=== PATIENT | male | born 1980 | race Caucasian/White ===

== ENCOUNTER 2020-03-25 18:44 | Emergency (ER) | payer OTHER ==
[2020-03-25] MEDS ORDERED: Fluorescein Opthalmic Strip ONE (18:58)
[2020-03-25] MEDS ORDERED: Tetracaine 0.5% PF 4 ML BOT ONE (18:58)
[2020-03-25] MEDS ORDERED: Neomycin-Polymyxin-Hc 7.5 ML BOT ONE ×2 (19:28)
== END 2020-03-25 19:39 | disposition home or self-care (01) ==
LOC: BURERS 18:44
DX: T15.01XA Foreign body in cornea, right eye, initial encounter (principal); B34.9 Viral infection, unspecified; W22.8XXA Striking against or struck by other objects, initial encounter
CPT/HCPCS: 65220